=== PATIENT | female | born 1970 | race Caucasian/White ===

== ENCOUNTER 2019-07-12 09:20 | Day surgery (SDC) | payer BC, OTHER ==
[2019-07-05 13:41] LABS: HEMATOCRIT 42.3 % (37.0-47.0); MCH 29.7 pg (26.0-34.0); MCHC 33.2 g/dL (28.0-37.0); MCV 89.5 fL (80.0-100.0); RBC 4.73 mil/uL (4.20-5.00); RDW 12.9 % (10.5-14.5)
[2019-07-05 13:45] LABS: URINE BILIRUBIN NEGATIVE (Negative); URINE BLOOD NEGATIVE (Negative); URINE CLARITY CLEAR; URINE COLOR YELLOW; URINE GLUCOSE-RANDOM* NEGATIVE (Negative); URINE KETONES NEGATIVE (Negative); URINE NITRITE-REFLEX NEGATIVE (Negative); URINE PROTEIN (DIPSTICK) NEGATIVE (Negative); URINE UROBILINOGEN 0.2 E.U./dl (0.2-1.0)
[2019-07-05 13:46] LABS: URINE LEUKOCYTES-REFLEX 1+ (Negative)
[2019-07-05 13:54] LABS: BACTERIA-REFLEX 1-9 Few /HPF (None Seen); CASTS None Seen /LPF (None Seen); SQUAMOUS >10 Many /LPF (0-3); URINE RBC 0-2 Rare /HPF (0-2); URINE WBC-REFLEX 6-15 Few /HPF (0-5)
[2019-07-05 13:56] LABS: CRYSTALS None Seen /LPF (None Seen)
[2019-07-05 14:21] LABS: ALBUMIN 4.3 g/dL (3.4-5.0); CALCIUM 9.1 mg/dL (8.5-10.1); CREATININE 0.9 mg/dL (0.6-1.0); POTASSIUM 4.3 mmol/L (3.5-5.1)
[~2019-07-12] VITALS: Ht 167.6 cm; Wt 84.4 kg
--- NOTE | ~2019-07-12 | O ---
[facility] [place] [address] [place] [address] OPERATIVE REPORT Name: RAZA MORENO Room #: 150-7 [facility] M.R.#: [id number] Admission: 07/12/19 Attend Phys: Jimmy Graves MD Discharge: Date of : 72 Report #: [id number] THIS REPORT FOR: cc: Jimmy Graves MD,Jimmy Kinney MD ~ CC: Tayla Graves DATE OF SERVICE: 07/12/2019 PREOPERATIVE DIAGNOSIS: Right hip osteoarthritis. POSTOPERATIVE DIAGNOSIS: Right hip osteoarthritis. PROCEDURE: Right total hip arthroplasty. SURGEON: Jimmy Graves MD. AUDIT SPEC: Fadumo Gracia PA-C. INDICATIONS FOR AUDIT SPEC: Throughout the case, extensive retraction and manipulation of the hip was required. This was afforded to me by my paraprofessional education assistant. ANESTHESIA: General. IMPLANTS: [employer] size 13 high offset Synergy press-fit stem, a size 52 R3 acetabular cup with one acetabular screw and a size 36 -3 Oxinium head. ESTIMATED BLOOD LOSS: 50 mL. COMPLICATIONS: None. SPECIMENS: None. CONDITION UPON LEAVING THE OPERATING ROOM: Stable. INDICATIONS FOR PROCEDURE: The patient is a 48-year-old female with right hip osteoarthritis. She had failed conservative measures for this and after discussion with her, she elected for right total hip arthroplasty. DESCRIPTION OF PROCEDURE: Risks, benefits, alternatives, complications were discussed in detail with the patient including but not limited to risk of anesthesia, risk of damage to nerves, arteries, blood vessels, risk for infection, bleeding, risk for continued hip pain, leg length discrepancy, instability and need for reoperation. Informed consent was obtained from the [facility] [place] [address] OPERATIVE REPORT Name: RAZA MORENO Room #: 150-7 [facility] M.R.#: [id number] Admission: 07/12/19 Attend Phys: Jimmy Graves MD Discharge: Date of : 72 Report #: [id number] patient. The right hip was appropriately marked in the preoperative holding area. IV Ancef was given for preoperative antibiotics. She was brought to the operating room and placed in the supine position on the operating room table. General anesthesia was induced without complication. She was then placed in the left lateral decubitus position with the right hip uppermost. Right hip and lower extremity were prepped and draped in normal sterile fashion. Timeout was performed, properly identifying the patient, procedure as well as the instrumentation and implants. All in the operating room were in agreement. Standard posterior approach to the hip was made with 10 blade through the skin. Dissection was taken down to the fascia with Bovie cautery and the fascia was cleaned with Chavez elevator. A fresh 10 blade was used to make a fascial incision. This was taken proximally and distally with curved Benitez scissor. Charnley retractor was placed. Trochanteric bursa was taken down with Bovie cautery. Piriformis tendon was identified, tagged and taken down with Bovie. Short external rotators were also taken down with Bovie cautery. Capsulotomy was made and capsule ends were tagged for later repair. Hip was dislocated and there was extensive osteoarthritic change of the femoral head. Femoral neck cut was made 1 cm proximal to lesser trochanter based on preoperative templating and the femoral head was removed. Deep acetabular retractors were placed. Labrum was removed sharply. Pulvinar was removed with Bovie cautery. Acetabulum was then sequentially reamed up to a size 52. At which point, there was excellent bleeding cancellous bone. A size 51 trial cup was placed, found to have a good fit. Final size 52 R3 acetabular cup was placed and seated. One acetabular screw was placed for backup fixation and a polyethylene liner for a 36 head was placed. Attention was then turned to the femur. This was reamed and broached up to a size 13, at which point the size 13 broach was stable, was trialed with a high offset neck and a 36+0 head. Hip was reduced, taken through range of motion, found to be stable, found to have equal leg lengths. Hip was dislocated. Broach was removed and final size 13 high offset Synergy press-fit stem was placed and seated. This did not seat quite as far as the broach and so we trialled with a 36 -3 head. Hip was reduced, taken through range of motion, found to be stable, found to have equal leg lengths. Hip was dislocated one last time and a final size 36 -3 Oxinium head was placed. Hip was reduced, taken through range of motion, found to be stable, found to have equal leg lengths. The hip was thoroughly irrigated with normal saline. Periarticular injection consisting of ropivacaine, epinephrine and Toradol was placed around the hip joint capsule. One gram of vancomycin was placed deep in the joint. The capsule was repaired with 0 FiberWire. Piriformis was repaired with 0 FiberWire. Fascia was closed with 0 Vicryl, skin was closed with 2-0 Vicryl, skin staple and a ILDA dressing was applied. The patient tolerated this procedure well and went to the recovery room under care of anesthesia postoperatively. By: [id number] Jimmy Graves MD /nt
[~2019-07-12 09:20] MED LIST: ALL DAY ALLERGY10 M3 PO; B12INJ IM; ESTRADIOL 1 MG T1 M1 PO; HYDROCODON-ACE1 EAC8 PO; LAMOTRIGINE100 M1 PO; LEVO-T25 MCG PO; LUNESTA3 MG PO; MELOXICAM15 MG PO; MULTIVITAMINS PO; PROTONIX40 M2 PO; VITAMIN D22000 UNIT PO; VYVANSE40 MG PO
[2019-07-12 10:02] VITALS: BP 101/77
--- NOTE | 2019-07-12 17:07 | NUR ---
PT CARE ASSUMED AT 1648. a&Ox4. carol dressing intact. polar pack in place. scd/ edilberto hoses in place. pt has already gotten up and walked to the bathroom. pt has only been able to use the bathroom with small trickles. will bladder scan. post op vitals are stable. will straight cath. pt is in a lot of pain that is being controlled with pain medication. fall protocoll in place. call light in reach.
[2019-07-12 19:25] VITALS: BP 115/50
[2019-07-13 00:20] VITALS: BP 104/48
--- NOTE | 2019-07-13 02:01 | NUR ---
ASSUMED CARE OF PT @1900 PT ASSESSED AT START OF SHIFT WITH C/O OF PAIN. PAIN MED GIVEN. PT UP WITH ASSISTX1 WITH WALKER MORE URINE OUTPUT THIS SHIFT. BY BEDSIDE. ILDA DRESSING, POLAR PACK AND SCD'S INTACT. FALL PREC IN PLACE AND CALL LIGHT WITHIN REACH. IV INTACT AND FLUIDS INFUISING WILL CONT WITH POC TILL EOS.
[2019-07-13 04:57] VITALS: BP 104/60
[2019-07-13 08:01] LABS: HEMATOCRIT 34.5 % (37.0-47.0); HEMOGLOBIN 11.3 gm/dL (12.0-15.0); MCH 29.7 pg (26.0-34.0); MCHC 32.9 g/dL (28.0-37.0); MCV 90.3 fL (80.0-100.0); RBC 3.82 mil/uL (4.20-5.00); RDW 12.7 % (10.5-14.5); WBC 10.9 thou/uL (4.0-11.0)
[2019-07-13 09:05] VITALS: BP 115/47
--- NOTE | 2019-07-13 12:26 | NUR ---
PT CARE ASSUMED AT 0300. A&Ox4. PT WAS IN A LOT OF PAIN AND HAD A ONE TIME DOSE OF MORPHINE ORDERED FOR BREAK THROUGH PAIN. THE MAINTNACE DOSES WERE ALSO INCREASED THE PT IS ON ON HOME NARCOTIC MEDICATION DUE TO A PAST BACK INJURY AND HER TOLERANCE IS HIGHER. PT IV INFILTRATED WITH IV FLUIDS COMPLEETE. WILL NOT INSERT A NEW ONE. PT IS UP TO THE BATHROOM AND HAS WORKED WITH PT AND HAS BEEN CLEARED TO DISCHARGE. PT HAS HER OWN WALKER IN THE ROOM. FALL PROTOCOLL IN PLACE. CALL LIGHT IN REACH.
[2019-07-13] MEDS ORDERED: NEURONTIN 300300 M1 PO (13:20)
[2019-07-13] MEDS ORDERED: ASPIR 8181 MG PO (13:20)
[2019-07-13 13:28] VITALS: BP 115/47
--- NOTE | 2019-07-13 14:05 | NUR ---
PT ADMITTED RELATED TO RIGHT TOTAL HIP REPLACEMENT. CM REVIEWED CHART AND SPOKE WITH CARE TEAM. CM MET WITH PT AT BEDSIDE THIS DAY. PT IS A&O X4. CM MET WITH PT AND SPOUSE AT BEDSIDE THIS DAY. PT IS A&O X4. CM ROLE INTRODUCED. PT INDICATED SHE LIVES IN A HOUSE WITH HER SPOUSE 2 DTRS AND GRANDKIDS. PT INDICATED THERE ARE 2 STEPS TO ENTER AND 16 SHE USES INSIDE. PT INDICATED SHE NEEDS A FWW ISSUED UPON DC. CM ORDERED ONE THROUGH [employer] AND IT WAS DELIVERED THIS MORNING. PT IS TO HAVE OP THEREAPY AT [facility] IN [place] ON THURSDAY. PT TO DC HOME THIS DAY. NO OTHER CM INTERVENTION INDICATED. CASE CLOSED.
== END 2019-07-13 13:45 | disposition home health service (06) ==
LOC: OR 09:20 → TBA 09:21 → OR 09:37 → EDSTATUS 15:30 → 4S 16:41 → OR 22:51 → ENTRNSPT 07-13 13:45
PROVIDERS: Orthopaedic Surgery
DX: M16.11 Unilateral primary osteoarthritis, right hip (principal); F41.9 Anxiety disorder, unspecified; K21.9 Gastro-esophageal reflux disease without esophagitis; G43.909 Migraine, unspecified, not intractable, without status migrainosus; Z90.710 Acquired absence of both cervix and uterus; Z90.49 Acquired absence of other specified parts of digestive tract; Z98.84 Bariatric surgery status; Z98.890 Other specified postprocedural states; Z79.899 Other long term (current) drug therapy; Z88.8 Allergy status to other drugs, medicaments and biological substances; Z79.82 Long term (current) use of aspirin; Z23 Encounter for immunization
CPT/HCPCS: 50010; 50101; 50382; 50414; 51320; 51412; 52001; 52282; 53000; 53078; 53368; 56524; 56528; 56530; 57095; 57103; 62110; 62900; 70005